=== PATIENT | male | born 1955 | race Caucasian/White ===

== ENCOUNTER 2019-04-17 14:04 | Outpatient (CLI) | payer MEDICARE, OTHER ==
--- NOTE | 2019-04-17 14:23 | RAD ---
EXAM: Two views chest PROVIDED CLINICAL HISTORY: Dyspnea COMPARISON: 06/14/2017 FINDINGS: Cardiac silhouette and pulmonary vasculature are within normal limits. The most inferior aspect of t he costophrenic angles are excluded on the lateral projection. The lungs are otherwise hyperexpanded but clear. The osseous structures have a normal appearance. There has been no interval change from prior study. IMPRESSION: No acute cardiopulmonary process.
== END 2019-04-17 14:05 | disposition home or self-care (01) ==
LOC: RAD 14:04
PROVIDERS: ATTEND Internal Medicine Critical Care Medicine
DX: R06.00 Dyspnea, unspecified (principal)
CPT/HCPCS: 71046

== ENCOUNTER 2020-05-18 14:39 | Outpatient (CLI) | payer MEDICARE, OTHER ==
[2020-05-18 18:15] LABS: #Eosinphils 0.2 thou/uL (0.0-0.7); #Lymphocytes 1.6 thou/uL (1.20-3.40); #Monocytes 0.6 thou/uL (0.11-0.59); #Neutrophils 3.9 thou/uL (1.40-6.50); %Basophils 0.5 % (0.0-1.0); %Eosinophils 3.8 % (0.0-10.0); %Lymphocytes 25.4 % (21.0-51.0); %Monocytes 9.3 % (0.0-10.0); %Neutrophils 60.9 % (42.0-75.0); Hemoglobin 16.7 g/dL (14.0-18.0); Mean Corpuscular HGB CONC 33.7 g/dL (32.0-36.0); Mean Corpuscular Hemoglobin 31.8 pg (27.0-31.0); Mean Corpuscular Volume 94.5 fL (78.0-98.0); Mean Platelet Volume 6.9 fL (7.4-10.4); Platelet Count 230 thou/uL (130-400); RBC Distribution Width 11.2 % (11.5-14.5); Red Blood Cell (RBC) Count 5.24 mill/uL (4.70-6.10); White Blood Cell (WBC) Count 6.5 thou/uL (4.8-10.8)
[2020-05-18 19:05] LABS: Anion Gap 12 mmol/L (10-20); BUN (Urea Nitrogen) 22 mg/dL (8.4-25.7); Calc. Creatinine Clearance 0 mL/min (70-130); Calcium 9.4 mg/dL (7.8-10.44); Carbon Dioxide 24 mmol/L (23-31); Chloride 108 mmol/L (98-107); Estimated GFR-MDRD 57; Glucose 100 mg/dL (80-115); Potassium 4.4 mmol/L (3.5-5.1); Sodium 140 mmol/L (136-145)
--- NOTE | 2020-05-19 07:00 | EKG ---
Test Reason : Blood Pressure : / mmHG Vent. Rate : 077 BPM Atrial Rate : 077 BPM P-R Int : 168 ms QRS Dur : 090 ms QT Int : 378 ms P-R-T Axes : 084 -50 073 degrees QTc Int : 427 ms Normal sinus rhythm Left axis deviation O/W normal No previous ECGs available Confirmed by DR. Jt CARBALLO ([id number]) on 05/19/2020 7:00:14 AM Referred By: ROBERTO Confirmed By:DR. Jt CARBALLO
[2020-05-19 16:24] LABS: SARS-CoV-2 MS2 Positive; SARS-CoV-2 N Gene Negative; SARS-CoV-2 S Gene Negative; SARS-CoV-2 by NAA Not Detected (NotDetected); SARS-CoV-2 orf1ab Negative
== END 2020-05-18 14:40 | disposition home or self-care (01) ==
LOC: LABBT 14:39
PROVIDERS: ATTEND Orthopaedic Surgery
DX: Z01.818 Encounter for other preprocedural examination (principal); S46.012A Strain of muscle(s) and tendon(s) of the rotator cuff of left shoulder, initial encounter; Z20.828 Contact with and (suspected) exposure to other viral communicable diseases
CPT/HCPCS: 80048; 85025; 93005; U0003; 87635; 93010

== ENCOUNTER 2020-05-21 08:25 | Day surgery (SDC) | payer MEDICARE ==
[2020-05-19 09:33] VITALS: BMI 23.4
[2020-05-21] MEDS ORDERED: Fentanyl 100 MCG/2 ML VIAL ONE (09:15)
[2020-05-21] MEDS ORDERED: Midazolam HCl 2 mg/2 ml Vial ONE (09:15)
[2020-05-21] MEDS ORDERED: Ketorolac Tromethamine 30 MG/ML VIAL IVP PRN (09:30)
[2020-05-21] MEDS ORDERED: traMADol HCl 50 MG TAB PO PRN ×2 (09:30)
[2020-05-21] MEDS ORDERED: Ondansetron PF 4 MG/2 ML Vial IVP PRN (09:30)
[2020-05-21] MEDS ORDERED: HYDROcodone/Acetaminophen 5/325 mg Tablet PO PRN ×2 (09:30)
[2020-05-21] MEDS ORDERED: Promethazine HCl 25 MG/ML VIAL IM PRN (09:30)
[2020-05-21] MEDS ORDERED: Ropivacaine 0.2% 550 ML 550 ML NERVE BLCK SCH (09:30)
[2020-05-21] MEDS ORDERED: Zolpidem Tartrate 5 MG TAB PO PRN (09:30)
[2020-05-21] MEDS ORDERED: PROPOFOL 200 MG/20 ML VIAL ONE (10:06)
[2020-05-21] MEDS ORDERED: Ropivacaine 0.5% HCl/PF (150 MG/30 ML VIAL) ONE (10:06)
[2020-05-21] MEDS ORDERED: Lidocaine 1% PF 5 ML VIAL ONE (10:06)
[2020-05-21] MEDS ORDERED: Rocuronium Bromide 10 MG/ML (10ML VIAL) ONE (10:06)
[2020-05-21] MEDS ORDERED: EPHEDRINE 25 MG/5 ML SYRINGE ONE (10:06)
[2020-05-21] MEDS ORDERED: Ropivacaine 0.2% HCl/PF (40 MG/20 ML VIAL) ONE (10:06)
--- NOTE | 2020-05-21 15:14 | OP ---
DATE OF PROCEDURE: 05/21/2020 PREOPERATIVE DIAGNOSES: 1. Left rotator cuff tear. 2. Biceps tendinopathy. POSTOPERATIVE DIAGNOSES: 1. Left rotator cuff tear. 2. Biceps tendinopathy. PROCEDURE PERFORMED: 1. Left arthroscopic rotator cuff repair. 2. Open biceps tenodesis. MAINS[employer]ING REVERSE WINDER: Altaf Liang PA-C. The application assistant/co-surgeon was present through the entire procedure and was responsible for providing exposure, tissue retraction and any necessary limb or tissue manipulation required to obtain necessary reduction or hardware placement. The application assistant/co-surgeon also provided bleeding control, tissue closure, and suturing in conjunction with the primary surgeon. BLOOD LOSS: Minimal. SPECIMENS: None. DRAINS: None. COMPLICATIONS: None. DESCRIPTION OF PROCEDURE: The patient was taken to the operating room where general anesthesia was induced, placed in right lateral decubitus position. Left arm was placed in 15 pounds of traction, prepped and draped in the usual sterile fashion. Scope was placed in the glenohumeral joint. He had a rotator cuff tear and severe biceps tendinopathy involving about a 50% rupture of the biceps tendon. The joint surface was in fairly good condition. Scope was placed in the subacromial bursa and had severe bursitis. Bursectomy was performed. CA ligament was taken down and inferior acromioplasty was performed. I did remove quite a bit of synovitis off the rotator cuff itself. I identified the rotator cuff tear. A single TWINFIX suture anchor was passed through the greater tuberosity, which had been previously freshened and bleeding. Sutures were passed through the tendon and tied down with a good watertight repair. The biceps tendon was tagged inside the joint and released. I then made a small incision anteriorly and delivered the biceps tendon out. I did release the tendon sheath and obtained hemostasis. I measured the tendon to size 7. I drilled a 7.5 mm hole and placed the tendon in the hole and fixed this with a Bio-Tenodesis screw. I did use a Krackow type stitch through the biceps tendon and tied this over the screw for double type repair. Shoulder was then irrigated. Portals were closed with nylon suture. Sterile dressing was applied. Job ID: [id number]
== END 2020-05-21 13:38 | disposition home or self-care (01) ==
LOC: SDC 08:25
PROVIDERS: ATTEND Orthopaedic Surgery
PROC: 0LQ24ZZ Repair Left Shoulder Tendon, Percutaneous Endoscopic Approach (ICD-10-PCS; principal; 2020-05-21)
PROC: 0LS40ZZ Reposition Left Upper Arm Tendon, Open Approach (ICD-10-PCS; 2020-05-21)
PROC: 3E0T3BZ Introduction of Anesthetic Agent into Peripheral Nerves and Plexi, Percutaneous Approach (ICD-10-PCS; 2020-05-21)
DX: S46.012A Strain of muscle(s) and tendon(s) of the rotator cuff of left shoulder, initial encounter (principal); M75.22 Bicipital tendinitis, left shoulder; G89.18 Other acute postprocedural pain; E78.00 Pure hypercholesterolemia, unspecified; F17.200 Nicotine dependence, unspecified, uncomplicated; G89.29 Other chronic pain; M54.5 Low back pain; V89.2XXA Person injured in unspecified motor-vehicle accident, traffic, initial encounter
CPT/HCPCS: 23430; 29827; 64416; 97139; A4306; C1713; J0690; J2250; J2704; J2795; J3010

== ENCOUNTER 2021-05-06 09:27 | Outpatient (CLI) | payer MEDICARE | END 2021-05-06 09:28 | disposition home or self-care (01) | LOC: BICCT 09:27 | PROVIDERS: ATTEND Internal Medicine Critical Care Medicine | DX: Z12.2 Encounter for screening for malignant neoplasm of respiratory organs (principal); F17.210 Nicotine dependence, cigarettes, uncomplicated; I25.10 Atherosclerotic heart disease of native coronary artery without angina pectoris; I70.0 Atherosclerosis of aorta | CPT/HCPCS: 71271 ==

== ENCOUNTER 2023-06-22 07:58 | Outpatient (CLI) | payer OTHER | END 2023-06-22 07:59 | disposition home or self-care (01) | LOC: BICCT 07:58 | PROVIDERS: ATTEND Internal Medicine Critical Care Medicine | DX: Z12.2 Encounter for screening for malignant neoplasm of respiratory organs (principal); F17.218 Nicotine dependence, cigarettes, with other nicotine-induced disorders; K80.20 Calculus of gallbladder without cholecystitis without obstruction; I25.10 Atherosclerotic heart disease of native coronary artery without angina pectoris; I70.0 Atherosclerosis of aorta; R91.8 Other nonspecific abnormal finding of lung field; J84.10 Pulmonary fibrosis, unspecified; J43.9 Emphysema, unspecified; J98.4 Other disorders of lung; K75.3 Granulomatous hepatitis, not elsewhere classified; D73.89 Other diseases of spleen | CPT/HCPCS: 71271 ==

== ENCOUNTER 2024-06-28 08:25 | Outpatient (CLI) | payer OTHER | END 2024-06-28 08:26 | disposition home or self-care (01) | LOC: BICCT 08:25 | PROVIDERS: ATTEND Internal Medicine Critical Care Medicine | DX: Z12.2 Encounter for screening for malignant neoplasm of respiratory organs (principal); J44.9 Chronic obstructive pulmonary disease, unspecified; F17.210 Nicotine dependence, cigarettes, uncomplicated | CPT/HCPCS: 71271 ==